=== PATIENT | male | born 1990 | race Two or more races ===

== ENCOUNTER 2019-08-13 01:19 | Emergency (ER) | payer SELFPAY ==
[~2019-08-13] VITALS: Ht 175.3 cm; Wt 74.8 kg
[2019-08-13 03:26] VITALS: BP 123/84
== END 2019-08-13 04:19 | disposition home or self-care (01) ==
LOC: ER 01:23
DX: S61.012A Laceration without foreign body of left thumb without damage to nail, initial encounter (principal); W26.0XXA Contact with knife, initial encounter; Y93.89 Activity, other specified; Y92.89 Other specified places as the place of occurrence of the external cause; Y99.8 Other external cause status
CPT/HCPCS: 12001